=== PATIENT | male | born 1995 | race Asian ===

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

== ENCOUNTER 2018-03-05 05:54 | Outpatient (CLI) | payer OTHER | END 2018-03-05 06:08 | disposition short-term general hospital (02) | LOC: AMB 05:54 | DX: M54.89 Other dorsalgia (principal) | CPT/HCPCS: A0425; A0429 ==

== ENCOUNTER 2018-03-05 06:08 | Emergency (ER) | payer OTHER ==
[~2018-03-05] VITALS: Ht 157.5 cm; Wt 68.0 kg
[2018-03-05 06:24] VITALS: TEMP 98.3
[2018-03-05 07:59] LABS: PLATELET COUNT 195 K/uL (142-355)
[2018-03-05 08:03] LABS: POTASSIUM 3.9 mmol/L (3.6-5.2)
[2018-03-05 08:38] VITALS: BP 169/80
== END 2018-03-05 08:38 | disposition home or self-care (01) ==
LOC: ED 06:12
PROVIDERS: Family Medicine
DX: M54.5 Low back pain (principal); M62.830 Muscle spasm of back
CPT/HCPCS: 80053; 81000; 85027; 96372; 99283; J1885

== ENCOUNTER 2018-06-08 09:55 | Outpatient (CLI) | payer OTHER | END 2018-06-08 10:08 | disposition short-term general hospital (02) | LOC: AMB 09:55 | DX: M54.5 Low back pain (principal) | CPT/HCPCS: A0425; A0427 ==

== ENCOUNTER 2018-06-08 10:10 | Emergency (ER) | payer OTHER ==
[~2018-06-08] VITALS: Ht 160 cm; Wt 68.0 kg
[2018-06-08 10:10] VITALS: TEMP 97.9
[2018-06-08 10:44] LABS: PLATELET COUNT 222 K/uL (142-355)
[2018-06-08 10:54] LABS: POTASSIUM 3.9 mmol/L (3.6-5.2)
[2018-06-08 13:09] VITALS: BP 125/86
== END 2018-06-08 13:05 | disposition home or self-care (01) ==
LOC: ED 10:10
PROVIDERS: Emergency Medicine
DX: R10.9 Unspecified abdominal pain (principal); K59.00 Constipation, unspecified
CPT/HCPCS: 74022; 80053; 81000; 82150; 83690; 85027; 96374; 99284; J1885

== ENCOUNTER 2020-06-26 09:30 | Emergency (ER) | payer OTHER ==
[~2020-06-26] VITALS: Ht 160 cm; Wt 63.5 kg
[2020-06-26 11:00] VITALS: BP 143/74; TEMP 98.1
== END 2020-06-26 11:00 | disposition home or self-care (01) ==
LOC: ED 09:30
DX: S39.012A Strain of muscle, fascia and tendon of lower back, initial encounter (principal)
CPT/HCPCS: 81000; 99282

== ENCOUNTER 2021-01-19 08:07 | Emergency (ER) | payer OTHER ==
[~2021-01-19] VITALS: Ht 160 cm; Wt 63.5 kg
[2021-01-19 13:20] VITALS: BP 148/80; TEMP 97.8
== END 2021-01-19 13:20 | disposition home or self-care (01) ==
LOC: ED 08:07
DX: B02.9 Zoster without complications (principal); L03.211 Cellulitis of face; M12.562 Traumatic arthropathy, left knee
CPT/HCPCS: 99282

== ENCOUNTER 2021-12-25 06:48 | Emergency (ER) | payer OTHER ==
[~2021-12-25] VITALS: Ht 160 cm; Wt 63.5 kg
[2021-12-25 06:48] VITALS: TEMP 99.6
[2021-12-25 07:15] LABS: PLATELET COUNT 191 K/uL (142-355)
[2021-12-25 08:21] VITALS: BP 133/82
== END 2021-12-25 08:22 | disposition home or self-care (01) ==
LOC: ED 06:48
PROVIDERS: Emergency Medicine Emergency Medical Services
DX: J20.9 Acute bronchitis, unspecified (principal); Z20.822 Contact with and (suspected) exposure to COVID-19
CPT/HCPCS: 36415; 84484; 85027; 87502; 87635; 87651; 93005; 94664; 96360; 96365; 96375; 99284; J0696; J1885; J2930; U0003

== ENCOUNTER 2022-08-29 08:14 | Emergency (ER) | payer OTHER ==
[~2022-08-29] VITALS: Ht 160 cm; Wt 63.5 kg
[2022-08-29 09:37] VITALS: BP 130/77; TEMP 98.2
== END 2022-08-29 09:37 | disposition home or self-care (01) ==
LOC: ED 08:14
DX: S60.221A Contusion of right hand, initial encounter (principal); S60.511A Abrasion of right hand, initial encounter; W22.8XXA Striking against or struck by other objects, initial encounter
CPT/HCPCS: 90471; 90715; 99283